=== PATIENT | female | born 1975 | race Caucasian/White ===

== ENCOUNTER 2022-01-04 14:12 | Outpatient (RCR) | payer OTHER, SELFPAY | END 2022-03-02 09:29 | disposition home or self-care (01) | PROVIDERS: PCP Family Medicine; Visit Provider Family Medicine | DX: H81.11 Benign paroxysmal vertigo, right ear (principal); R42 Dizziness and giddiness; Z51.89 Encounter for other specified aftercare | CPT/HCPCS: 97161 ==